=== PATIENT | male | born 1995 | race Caucasian/White ===

== ENCOUNTER 2016-12-04 14:27 | Emergency (ER) | payer SELFPAY ==
[~2016-12-04] VITALS: Wt 83.5 kg
[~2016-12-04 14:27] MED LIST: CYCL-319 PO; IBUP-1542 PO; LORA1TAB PO; MECL12.574 PO; MECL25TA2 PO; NAPR-260 PO
== END 2016-12-04 16:09 | disposition left against medical advice (07) ==
LOC: FTE 14:27
DX: Z53.21 Procedure and treatment not carried out due to patient leaving prior to being seen by health care provider (principal)